=== PATIENT | female | born 1940 | race Caucasian/White ===

== ENCOUNTER 2018-11-11 17:55 | Emergency (ER) | payer MEDICARE ==
[2018-11-11 18:15] VITALS: BP 127/72; PULSE 72; RESP 18; TEMP 98.3
[2018-11-11] MEDS ORDERED: DIPH,PERTUS(ACELL)TETVAC-LF 0.5 ML VIAL IM ONE (18:25)
[2018-11-11] MEDS ORDERED: LIDOCAINE 1% INJ 10MG/ML (20 ML MDV) SQ ONE (18:26)
--- NOTE | 2018-11-11 18:41 | XR ---
EXAMINATION TYPE: XR finger LT DATE OF EXAM: 11/11/2018 COMPARISON: NONE HISTORY: Laceration TECHNIQUE: 3 views FINDINGS: There is soft tissue deformity at the tip of the finger. There is moderate osteoarthritis a t the DIP joint of the little finger. I see no fracture. There is no sign of radiopaque foreign body. IMPRESSION: Osteoarthritis. No fracture. No evidence of a foreign body.
--- NOTE | 2018-11-11 19:42 | ED ---
Upper Extremity HPI - General Chief Complaint: Extremity Injury, Upper Stated Complaint: laceration left 5th digit Source: patient Mode of arrival: ambulatory Limitations: no limitations - History of Present Illness Initial Comments: 77yo female presenting today for chief complaint of left fifth digit laceration. Patient states she crushed her finger between the boat and [employer]. Patient states there is a laceration. Patient denies any gross deformity of the bone but states there is flattening of the skin. Patient denies complete avulsion. Patient denies numbness tingling loss sensation. Patient states it is painful. Patient states she is still able to fully range at the digit. Denies any noted weakness. Patient denies any other areas of injury denies fall head injury or trauma to the neck or back. Remaining review of systems negative upon arrival patient appears well no signs of acute distress. Bleeding controlled. Bandage in place. - Related Data Previous Rx's Medication Instructions Recorded Cephalexin [Keflex] 500 mg PO Q8HR 7 Days #21 cap 11/11/18 Allergies Allergy/AdvReac Type Severity Reaction Status Date / Time No Known Allergies Allergy Verified 11/11/18 18:11 Review of Systems ROS Statement: Those systems with pertinent positive or pertinent negative responses have been documented in the HPI. ROS Other: All systems not noted in ROS Statement are negative. Past Medical History Past Medical History: No Reported History History of Any Multi-Drug Resistant Organisms: None Reported Past Surgical History: Appendectomy Additional Past Surgical History / Comment(s): LT sided lumpectomy Past Psychological History: No Psychological Hx Reported Smoking Status: Never smoker Past Alcohol Use History: Occasional Past Drug Use History: None Reported General Exam - General Exam Comments Initial Comments: General: The patient is awake and alert, in no distress, and does not appear acutely ill. Eye: Pupils are equal, round and reactive to light, extra-ocular movements are intact. No nystagmus. There is normal conjunctiva bilaterally. No signs of icterus. Ears, nose, mouth and throat: There are moist mucous membranes and no oral lesions. Neck: The neck is supple, there is no tenderness or JVD. Cardiovascular: There is a regular rate and rhythm. No murmur, rub or gallop is appreciated. Respiratory: Lungs are clear to auscultation, respirations are non-labored, breath sounds are equal. No wheezes, stridor, rales, or rhonchi. Musculoskeletal: Normal ROM, no tenderness. Strength 5/5. Sensation intact. Pulses equal bilaterally 2+. Neurological: A&O x 3. CN II-XII intact, There are no obvious motor or sensory deficits. Coordination appears grossly intact. Speech is normal. Skin: Skin is warm and dry and no rashes. Flap, partial avulsion of fat pad of fifth digit of left hand. Small areas of complete avulsion of skin. No exposure of tendon, some exposure of adipose. No evidence of FB. No exposure of bone. She is able to fully range at the MTP DIP and PIP joints E shows isolated. Full strength no evidence of weakness. Full sensation both proximal distal to injury site. No evidence of necrotic tissue. Psychiatric: Cooperative, appropriate mood & affect, normal judgment. Limitations: no limitations Course Vital Signs 11/11/18 18:11 Temperature 98.3 F Pulse Rate 72 Respiratory 18 Rate Blood Pressure 127/72 O2 Sat by Pulse 98 Oximetry Procedures - Laceration Laceration #1 Consent Obtained: verbal consent Indication: laceration Site: other (5th digit left handd) Size (cm): 1 Description: flap, avulsion, irregular Depth: simple, single layer Anesthesia Technique: nerve block Amount (mls): 2 Pre-repair: wound explored, irrigated extensively, deep structures intact Size of Sutures: 5-0 Number of Sutures: 5 Technique: simple, interrupted Patient Tolerated Procedure: well, no complications Medical Decision Making - Medical Decision Making 77 year female presented for partial avulsion of Pad of the fifth digit of left hand. Area was cleansed irrigated extensively prior to tacking down flat. Wound edges approximated as well as possible. Patient tolerated procedure well. X-ray revealed no evidence of osseous injury. There is no physical examination findings consistent with tendon injury. No evidence of tendon exposure. Return parameters as well as findings consistent with delayed tendon rupture were discussed with the patient who verbalized understanding. Patient discharged appearing well aware of wound care, return parameters for suture removal. Disposition Clinical Impression: Finger laceration, Skin avulsion, Finger pain Disposition: HOME SELF-CARE Condition: Good Instructions (If sedation given, give patient instructions): Care For Your Stitches (ED), Laceration (ED) Additional Instructions: Please use medication as discussed. Please follow-up with family doctor in the next 2 days of symptoms. Return for suture removal in 7-10 days. Change bandage as discussed. Please return to emergency room if the symptoms increase or worsen or for any other concerns. Prescriptions: Cephalexin [Keflex] 500 mg PO Q8HR 7 Days #21 cap Is patient prescribed a controlled substance at d/c from ED?: No Referrals: Nonstaff,Physician [Primary Care Provider] - 1-2 days Time of Disposition: 19:42
== END 2018-11-11 19:51 | disposition home or self-care (01) ==
LOC: EC 17:55
DX: S61.217A Laceration without foreign body of left little finger without damage to nail, initial encounter (principal); Z23 Encounter for immunization; W23.1XXA Caught, crushed, jammed, or pinched between stationary objects, initial encounter; Y93.89 Activity, other specified
CPT/HCPCS: 73140; 90715; 99283; 12001; 90471; J2001